=== PATIENT | female | born 1950 ===

== ENCOUNTER → 2016-09-19 | Day surgery (SDC) | payer MEDICAID ==
[~2016-09-19] MED LIST: BUPIVACAINE HCL PF 0.5% 10 ML VIAL ONE; LACTATED RINGER'S 1000 ML INJ 1,000 ML ONE; MIDAZOLAM HCL 2 MG/2 ML VIAL ONE; ONDANSETRON HCL 4 MG/2 ML VIAL IV PUSH ONE; PROPOFOL 200 MG/20 ML AMP IV ONE; ceFAZolin 2 GM PREMIX 50 ML ONE
--- NOTE | 2016-09-19 22:42 | MP ---
cc: MARNI ABRAHAMM DATE OF SURGERY 09/19/[address] 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 PROCEDURE Left foot fourth digit PIPJ arthrodesis. ANESTHESIA General HEMOSTASIS Pneumatic ankle tourniquet at 250 mmHg ESTIMATED BLOOD LOSS Less than 5 mL MATERIALS USED A Trilliant toe implant, 3-0 Monocryl, 3-0 Prolene INJECTABLES 10 mL of 0.5% Marcaine plain COMPLICATIONS None INDICATIONS Ms. Garcia is a patient well-known to me. She has had this hammertoe fixed in the past, but unfortunately her K-wire became dislodged shortly after the surgery and correction was lost of the PIP of the fourth digit and she had a flexible but contracted digit of the fourth toe which she states continued to give her problems and remained painful. At this time, she has elected to have it revised and we will use a permanently implanted hammertoe device in order to prevent recurrence of the events of her last surgery. The consent was signed. The procedure explained. No guarantees were given. PROCEDURE IN DETAIL Under mild sedation, the patient was brought into the operating room, placed on the operating table in supine position. Following IV sedation, a pneumatic ankle tourniquet was placed around the left ankle. The foot was then scrubbed, prepped and draped in the usual aseptic manner. An Esmarch bandage was used to exsanguinate the left foot and attention was directed to the dorsal aspect of the fourth digit over the PIPJ. It was deepened through skin and subcutaneous tissue with care being taken to identify and retract any vital neurovascular structures. The extensor tendon was severed transversely in order to gain access to the joint. There was no cartilaginous tissue noted as a prior surgery had been done. A rongeur was used to create an even smooth bleeding bone surfaces. The area was then flushed with copious amounts of sterile saline and the proximal phalanx was drilled with the Trilliant hand drill. A wire was then thrown retrograde to the intermediate and distal phalanges and a size 6 Trilliant implant was screwed into place through the intermediate phalanges and then press fit into the proximal phalanx. The K-wire was advanced through the proximal phalanx across the MPJ and into the metatarsal head. On physical appearance, the alignment appeared excellent and this was confirmed under fluoroscopy as well as the position of the implant which was noted to be acceptable. The area was again flushed with copious amounts of sterile saline. The extensor tendon was reapproximated with 3-0 Monocryl. Deep tissue was reapproximated with 3-0 Monocryl, skin was reapproximated with 3-0 Prolene. 10 mL of 0.5% Marcaine plain was injected around the left fourth digit. Pneumatic ankle tourniquet was released. There was a prompt hyperemic response to all digits of the left foot. Sterile dressing of Adaptic, 4x4, Raffy and an Milton wrap was applied. The patient tolerated the procedure and the anesthesia well. She will recover in the PACU for a period of time before being discharged home with written and oral postoperative instructions. Marni HARVEY/ /9:48 AM /10:21 PM
== END | disposition home or self-care (01) ==
LOC: ESDC 07:36
PROVIDERS: ATTEND Podiatrist Foot & Ankle Surgery
DX: M20.42 Other hammer toe(s) (acquired), left foot (principal)
CPT/HCPCS: 01480; 28285; 76000; C1713; J0690; J2250; J2405; J3010; J7120